=== PATIENT | female | born 1970 | race American Indian/Alaskan Native ===

== ENCOUNTER 2018-03-05 08:52 | Inpatient (IN) | payer MEDICAID, OTHER ==
[~2018-03-05] VITALS: Ht 160 cm; Wt 48.8 kg
[2018-03-05] MEDS ORDERED: thiamine inj. 100 MG, magnesium sulf injection 2 GM, MVI, adult No.4 with vit. K 10 ML ... IV SCH ×4 (09:05)
[2018-03-05] MEDS ORDERED: normal saline 1000ML IV soln IVB ONE (09:05)
[2018-03-05] MEDS ORDERED: LORazepam 2 mg/ml vial IV ONE ×2 (09:05→10:25)
[2018-03-05] MEDS ORDERED: WATER IV SCH (09:49)
[2018-03-05] MEDS ORDERED: MAGNESIUM SULF IV SCH (09:49)
[2018-03-05] MEDS ORDERED: THIAMINE IV SCH (09:49)
[2018-03-05] MEDS ORDERED: DEXTROSE 5% IV SCH (09:49)
[2018-03-05 09:53] LABS: CLARITY,URINE SLIGHTLY CLOUDY (Clear); COLOR,URINE STRAW (Yellow); GLUCOSE, URINE NEGATIVE (Neg); KETONES,URINE NEGATIVE (Neg); LEUKOCYTE ESTERASE ,URINE TRACE (Neg); NITRITES, URINE NEGATIVE (Neg); OCCULT BLOOD,URINE NEGATIVE (Neg); PH,URINE 6.5 (4.8-8.0); PROTEIN,URINE NEGATIVE (Neg); UROBILINOGEN,URINE 0.2 E.U/dL (0.2-1.0)
[2018-03-05 09:59] LABS: BASOPHILS % (AUTO) 0.4 % (0-1); EOSINOPHILS # (AUTO) 0.1 X10'3 (0-0.9); EOSINOPHILS % (AUTO) 1.4 % (0-6); HEMATOCRIT 39.1 % (35.0-45.0); HEMOGLOBIN 13.2 g/dl (12.0-16.0); LYMPHOCYTES # (AUTO) 0.7 X10'3 (1.1-4.8); LYMPHOCYTES % (AUTO) 9.6 % (21-51); MEAN CORPUSCULAR HEMOGLOBIN 34.1 PG (27.0-31.0); MEAN CORPUSCULAR HGB CONC 33.8 % (33.0-36.5); MEAN CORPUSCULAR VOLUME 100.7 FL (78-98); MONOCYTES # (AUTO) 0.7 X10'3 (0-0.9); MONOCYTES % (AUTO) 8.8 % (2-12); NEUTROPHILS # (AUTO) 6.3 X10'3 (1.8-7.7); NEUTROPHILS % (AUTO) 79.8 % (42-75); PLATELET COUNT 144 X10'3 (140-440); RED BLOOD COUNT 3.88 X10'6 (4.20-5.60); RED CELL DISTRIBUTION WIDTH 12.3 % (11.5-14.5); WHITE BLOOD COUNT 7.8 X10'3 (4.5-11.0)
[2018-03-05 10:05] LABS: URINE AMPHETAMINE SCREEN NEGATIVE (Neg); URINE BARBITUATE SCREEN NEGATIVE (Neg); URINE BENZODIAZEPINES SCREEN NEGATIVE (Neg); URINE CANNABINOID SCREEN NEGATIVE (Neg); URINE COCAINE SCREEN NEGATIVE (Neg); URINE METHADONE SCREEN NEGATIVE (Neg); URINE OPIATE SCREEN NEGATIVE (Neg); URINE PHENCYCLIDINE SCREEN NEGATIVE (Neg)
[2018-03-05 10:08] LABS: ALANINE AMINOTRANSFERASE 79 U/L (12-78); ALBUMIN 3.8 G/DL (3.4-5.0); ALKALINE PHOSPHATASE 134 IU/L (46-116); ANION GAP 15 (8-16); ASPARTATE AMINO TRANSFERASE 208 U/L (10-37); BILIRUBIN,TOTAL 1.1 MG/DL (0.1-1.0); BLOOD UREA NITROGEN 4 MG/DL (7-18); BUN/CREATININE RATIO 8.7 (6.6-38.0); CHLORIDE 94 MMOL/L (99-107); CREATININE 0.46 MG/DL (0.40-0.90); GLUCOSE 85 MG/DL (70-104); POTASSIUM 3.8 MMOL/L (3.5-5.1); SODIUM 133 MMOL/L (135-145); TOTAL CARBON DIOXIDE 24.1 MMOL/L (24-32); TOTAL PROTEIN 7.8 G/DL (6.4-8.2); eGFR > 90 ML/MIN
[2018-03-05] MEDS: multivitamins, therapeutics tablet PO SCH (10:11)
[2018-03-05 10:17] LABS: UA COLLECTION TYPE CLN CATCH MIDSTREAM
[2018-03-05 10:21] LABS: BACTERIA,URINE FEW /HPF (Neg); RBC,URINE 0-2 /HPF (0-2); SQUAMOUS EPITHELIAL CELL,UR MODERATE /LPF (FEW); WBC,URINE 0-4 /HPF (0-4)
[2018-03-05] MEDS ORDERED: ondansetron/PF 4mg/2ml inj IV ONE (10:25)
--- NOTE | 2018-03-05 10:30 | NUR ---
pt driking 32 oz ice tea. NAD less tremors after ativan
--- NOTE | 2018-03-05 11:56 | NUR ---
HOSPITALIST AT BEDSIDE FOR ADMIT
[2018-03-05] MEDS ORDERED: potassium Cl 20 mEq SR tablet PO PRN (12:25)
[2018-03-05] MEDS ORDERED: mag hydrox/Alum hydrox/simeth 30ml oral suspension PO PRN (12:25)
[2018-03-05] MEDS ORDERED: potassium Cl 40MEQ/NS 500ml 500 ML IV PRN (12:25)
[2018-03-05] MEDS ORDERED: magnesium Cl slow-release 64mg tablet PO PRN (12:25)
[2018-03-05] MEDS ORDERED: magnesium 4gm in 100ml NS 100 ML IV PRN (12:25)
[2018-03-05] MEDS ORDERED: magnesium hydroxide 30ml (MOM) UD suspension PO PRN (12:25)
[2018-03-05] MEDS ORDERED: acetaminophen 325mg tablet PO PRN ×2 (12:25)
[2018-03-05] MEDS ORDERED: haloperidol lactate 5mg/ml inj IM PRN (13:00)
[2018-03-05] MEDS ORDERED: haloperidol 5mg tablet PO PRN (13:00)
--- NOTE | 2018-03-05 13:17 | NUR ---
ASSUMED CARE OF PT FROM SYLVIA RN, PT IS RESTING QUIETLY WAITING FOR ROOM ASSIGNMENT
[2018-03-05] MEDS ORDERED: NO HOME MEDS (13:29)
--- NOTE | 2018-03-05 13:43 | NUR ---
ATTEMPTED REPORT, NURSE IS BUSY AND WILL CALL BACK, PT IS RESTING QUIETLY WITH FAMILY AT BEDSIDE, SHE IS DRINKING FLUID, GUY WELL, NO N/V
--- NOTE | 2018-03-05 14:20 | NUR ---
report called to Erica GALARZA
--- NOTE | 2018-03-05 14:21 | NUR ---
Received report from Harmony GALARZA in ER
[2018-03-05 15:15] VITALS: BP 142/101
[2018-03-05] MEDS: LORazepam 2 mg/ml vial IV PRN ×4 (15:53→23:07)
[2018-03-05] MEDS: nicotine 21mg patch - 24 hr TD SCH (16:54)
[2018-03-05] MEDS: ondansetron/PF 4mg/2ml inj IV PRN (17:42)
--- NOTE | 2018-03-05 18:10 | NUR ---
Problems reprioritized. Patient report given, Cesilia RN questions answered & plan of care reviewed with .
--- NOTE | 2018-03-05 18:30 | NUR ---
Patient in room [facility] 345. I have received report from Nicole GALARZA and had the opportunity to ask questions and assume patient care.
[2018-03-05 19:30] VITALS: BP 129/81
[2018-03-05 20:00] VITALS: BP 129/81
[2018-03-05] MEDS: dextrose 5%-normal saline 1,000 ML IV SCH (20:22)
[2018-03-05 23:00] VITALS: BP 151/108
--- NOTE | 2018-03-06 03:03 | NUR ---
Patient states that she does not take any medications at home , not even for pain or vitamin supplements Addendum: 03/06/18 at 0342 by Cesilia Hensley RN Amended: Links added.
[2018-03-06 05:18] LABS: BASOPHILS % (AUTO) 0.7 % (0-1); EOSINOPHILS # (AUTO) 0.1 X10'3 (0-0.9); EOSINOPHILS % (AUTO) 2.9 % (0-6); HEMATOCRIT 33.5 % (35.0-45.0); HEMOGLOBIN 11.8 g/dl (12.0-16.0); LYMPHOCYTES # (AUTO) 0.9 X10'3 (1.1-4.8); LYMPHOCYTES % (AUTO) 19.7 % (21-51); MEAN CORPUSCULAR HEMOGLOBIN 35.3 PG (27.0-31.0); MEAN CORPUSCULAR HGB CONC 35.3 % (33.0-36.5); MEAN CORPUSCULAR VOLUME 99.7 FL (78-98); MEAN PLATELET VOLUME 8.5 FL (7.4-10.4); MONOCYTES # (AUTO) 0.4 X10'3 (0-0.9); MONOCYTES % (AUTO) 9.1 % (2-12); NEUTROPHILS # (AUTO) 3.1 X10'3 (1.8-7.7); NEUTROPHILS % (AUTO) 67.6 % (42-75); PLATELET COUNT 111 X10'3 (140-440); RED BLOOD COUNT 3.36 X10'6 (4.20-5.60); RED CELL DISTRIBUTION WIDTH 12.2 % (11.5-14.5); WHITE BLOOD COUNT 4.5 X10'3 (4.5-11.0)
[2018-03-06 05:22] LABS: PROTHROMBIN TIME 10.1 SECONDS (9.0-12.0)
[2018-03-06 06:04] LABS: ALANINE AMINOTRANSFERASE 55 U/L (12-78); ALBUMIN 3.2 G/DL (3.4-5.0); ALBUMIN/GLOBULIN RATIO 0.9 (1.1-1.5); ALKALINE PHOSPHATASE 103 IU/L (46-116); AMYLASE 31 U/L (25-115); ANION GAP 12 (8-16); ASPARTATE AMINO TRANSFERASE 108 U/L (10-37); BILIRUBIN,TOTAL 1.7 MG/DL (0.1-1.0); BLOOD UREA NITROGEN 2 MG/DL (7-18); BUN/CREATININE RATIO 4.3 (6.6-38.0); CALCIUM 8.2 MG/DL (8.5-10.1); CHLORIDE 99 MMOL/L (99-107); CREATININE 0.47 MG/DL (0.40-0.90); GLUCOSE 91 MG/DL (70-104); LIPASE 71 U/L (73-393); PHOSPHORUS 3.1 MG/DL (2.3-4.5); POTASSIUM 3.2 MMOL/L (3.5-5.1); SODIUM 135 MMOL/L (135-145); TOTAL CARBON DIOXIDE 24.4 MMOL/L (24-32); TOTAL PROTEIN 6.8 G/DL (6.4-8.2); eGFR > 90 ML/MIN
--- NOTE | 2018-03-06 06:05 | NUR ---
Patient in room [facility] 345. I have received report from Cesilia GALARZA and had the opportunity to ask questions and assume patient care.
--- NOTE | 2018-03-06 06:15 | NUR ---
Problems reprioritized. Patient report given, questions answered & plan of care reviewed with Nicole GALARZA.
[2018-03-06 07:47] VITALS: BP 128/89
[2018-03-06] MEDS: K and/or MAG REPLACEMENT MC SCH (08:00)
[2018-03-06] MEDS: LORazepam 2 mg/ml vial IV PRN ×5 (08:55→22:46)
[2018-03-06] MEDS: thiamine 100mg tablet PO SCH (08:55)
[2018-03-06] MEDS: multivitamins, therapeutics tablet PO SCH (08:55)
[2018-03-06] MEDS: folic acid 1mg tablet PO SCH (08:55)
[2018-03-06] MEDS: nicotine 21mg patch - 24 hr TD SCH (08:56)
[2018-03-06] MEDS: enoxaparin 40mg/0.4ml syringe SQ SCH (08:56)
[2018-03-06] MEDS: dextrose 5%-normal saline 1,000 ML IV SCH ×2 (08:57→20:54)
[2018-03-06] MEDS: potassium Cl 20 mEq SR tablet PO PRN ×3 (09:07→20:53)
[2018-03-06] MEDS ORDERED: tuberculin, purif. prot. deriv. 5 units/0.1ml ID ONE (11:15)
[2018-03-06 11:30] VITALS: BP 146/101
[2018-03-06 12:00] VITALS: BP 146/101
[2018-03-06] MEDS: ondansetron/PF 4mg/2ml inj IV PRN (12:44)
[2018-03-06] MEDS ORDERED: citalopram 20mg tablet PO SCH (16:25)
--- NOTE | 2018-03-06 16:35 | NUR ---
Administered PPD 1434. Read 03/08 at 1434
--- NOTE | 2018-03-06 17:32 | NUR ---
Malnutrition consult. H/o EtOH 18 beers per day per H&P and here for detox for 72 hours before she can go into rehab facility. She is receiving MVI, folic acid and thiamine. Patient is fatigued and with some tremors. Appetite is low d/t this. PO intake for one day 25-49%. Patient's appetite likely to improve as detox continues. Usual diet at home documented as "drank beers" and reports weight loss of between 14-23 lbs. Patient seen at bedside and reports UBW to be between 122 and 124 lbs however she does not know how long ago she weighed that. There is no weight history. She currently weighs 111 lbs. Patient reports she does not usually eat three meals/day and will barely eat one meal. The menu ordering process was reviewed and patient reports satisfaction with the variety that is offered and has no questions or concerns at this time, provided no food preferences. Patient has no visible fat or muscle loss. Will continue to follow. Addendum: 03/06/18 at [address] Amended: Links added.
[2018-03-06 18:00] VITALS: BP 136/86
--- NOTE | 2018-03-06 18:15 | NUR ---
Problems reprioritized. Patient report given, Cecilia GALARZA questions answered & plan of care reviewed with .
--- NOTE | 2018-03-06 18:20 | NUR ---
Received report from primary care nurse Nicole GALARZA. Assumed patient care. Patient is awake and alert on room air visiting with her daughter and her mother. Call light and items of frequent use within reach. Will continue to monitor for changes.
[2018-03-07] VITALS: BP 132/87
[2018-03-07] MEDS: LORazepam 2 mg/ml vial IV PRN ×6 (05:07→21:59)
[2018-03-07 05:23] LABS: BASOPHILS % (AUTO) 0.5 % (0-1); EOSINOPHILS # (AUTO) 0.2 X10'3 (0-0.9); EOSINOPHILS % (AUTO) 5.9 % (0-6); HEMATOCRIT 32.5 % (35.0-45.0); HEMOGLOBIN 10.9 g/dl (12.0-16.0); LYMPHOCYTES # (AUTO) 0.9 X10'3 (1.1-4.8); LYMPHOCYTES % (AUTO) 24.4 % (21-51); MEAN CORPUSCULAR HEMOGLOBIN 34.3 PG (27.0-31.0); MEAN CORPUSCULAR HGB CONC 33.5 % (33.0-36.5); MEAN CORPUSCULAR VOLUME 102.2 FL (78-98); MEAN PLATELET VOLUME 8.9 FL (7.4-10.4); MONOCYTES # (AUTO) 0.4 X10'3 (0-0.9); MONOCYTES % (AUTO) 12.4 % (2-12); NEUTROPHILS % (AUTO) 56.8 % (42-75); PLATELET COUNT 102 X10'3 (140-440); RED BLOOD COUNT 3.18 X10'6 (4.20-5.60); WHITE BLOOD COUNT 3.5 X10'3 (4.5-11.0)
[2018-03-07 05:24] LABS: INR 1.1 INR; PROTHROMBIN TIME 10.9 SECONDS (9.0-12.0)
--- NOTE | 2018-03-07 06:13 | NUR ---
Checked patients BG was 101 called lab for redraw.
[2018-03-07 07:00] VITALS: BP 142/97
[2018-03-07] MEDS: nicotine 21mg patch - 24 hr TD SCH (07:59)
[2018-03-07] MEDS: citalopram 20mg tablet PO SCH (08:00)
[2018-03-07] MEDS: thiamine 100mg tablet PO SCH (08:00)
[2018-03-07] MEDS: K and/or MAG REPLACEMENT MC SCH (08:00)
[2018-03-07] MEDS: multivitamins, therapeutics tablet PO SCH (08:01)
[2018-03-07] MEDS: folic acid 1mg tablet PO SCH (08:01)
[2018-03-07] MEDS: enoxaparin 40mg/0.4ml syringe SQ SCH (08:02)
[2018-03-07 08:43] LABS: ALANINE AMINOTRANSFERASE 52 U/L (12-78); ALBUMIN 3.4 G/DL (3.4-5.0); ALBUMIN/GLOBULIN RATIO 0.9 (1.1-1.5); ALKALINE PHOSPHATASE 110 IU/L (46-116); AMYLASE 25 U/L (25-115); ANION GAP 12 (8-16); ASPARTATE AMINO TRANSFERASE 90 U/L (10-37); BILIRUBIN,TOTAL 1.4 MG/DL (0.1-1.0); BLOOD UREA NITROGEN 1 MG/DL (7-18); BUN/CREATININE RATIO 1.9 (6.6-38.0); CALCIUM 8.8 MG/DL (8.5-10.1); CHLORIDE 98 MMOL/L (99-107); CREATININE 0.52 MG/DL (0.40-0.90); GLUCOSE 97 MG/DL (70-104); LIPASE 72 U/L (73-393); MAGNESIUM 1.6 MG/DL (1.5-2.4); PHOSPHORUS 3.1 MG/DL (2.3-4.5); POTASSIUM 3.6 MMOL/L (3.5-5.1); SODIUM 133 MMOL/L (135-145); TOTAL CARBON DIOXIDE 22.6 MMOL/L (24-32); TOTAL PROTEIN 7.3 G/DL (6.4-8.2); eGFR > 90 ML/MIN
[2018-03-07 12:00] VITALS: BP 147/103
[2018-03-07] MEDS: dextrose 5%-normal saline 1,000 ML IV SCH (12:23)
[2018-03-07 18:00] VITALS: BP 147/99
--- NOTE | 2018-03-07 18:22 | NUR ---
Problems reprioritized. Patient report given, questions answered & plan of care reviewed with Cecilia GALARZA.
--- NOTE | 2018-03-07 18:28 | NUR ---
Received report from primary care nurse Tiffany GALARZA. Assumed patient care. Patient is awake and alert on room air in no apparent distress visiting with her daughters. Call light and items of frequent use within reach will continue to monitor for changes.
--- NOTE | 2018-03-07 18:28 | NUR ---
Problems reprioritized. Patient report given, questions answered & plan of care reviewed with Mikie GALARZA. Addendum: 03/07/18 at 1829 by Tiffany Brown RN Dorcas Brooks RN
[2018-03-08] VITALS: BP 141/103
[2018-03-08] MEDS: dextrose 5%-normal saline 1,000 ML IV SCH ×2 (01:49→14:48)
[2018-03-08 05:20] LABS: PROTHROMBIN TIME 10.3 SECONDS (9.0-12.0)
[2018-03-08 05:26] LABS: ANION GAP 10 (8-16); BILIRUBIN,TOTAL 1.5 MG/DL (0.1-1.0); BLOOD UREA NITROGEN 1 MG/DL (7-18); BUN/CREATININE RATIO 2.4 (6.6-38.0); CALCIUM 8.5 MG/DL (8.5-10.1); CHLORIDE 95 MMOL/L (99-107); CREATININE 0.41 MG/DL (0.40-0.90); GLUCOSE 96 MG/DL (70-104); MAGNESIUM 1.3 MG/DL (1.5-2.4); PHOSPHORUS 3.7 MG/DL (2.3-4.5); SODIUM 129 MMOL/L (135-145); TOTAL CARBON DIOXIDE 23.7 MMOL/L (24-32); TOTAL PROTEIN 6.8 G/DL (6.4-8.2); eGFR > 90 ML/MIN
[2018-03-08 05:27] LABS: ALANINE AMINOTRANSFERASE 47 U/L (12-78); ALBUMIN 3.2 G/DL (3.4-5.0); ALBUMIN/GLOBULIN RATIO 0.9 (1.1-1.5); ALKALINE PHOSPHATASE 101 IU/L (46-116); AMYLASE 22 U/L (25-115); ASPARTATE AMINO TRANSFERASE 78 U/L (10-37); LIPASE 67 U/L (73-393)
[2018-03-08 05:35] LABS: POTASSIUM 2.9 MMOL/L (3.5-5.1)
[2018-03-08 05:36] LABS: BASOPHILS % (AUTO) 0.2 % (0-1); EOSINOPHILS # (AUTO) 0.3 X10'3 (0-0.9); EOSINOPHILS % (AUTO) 5.8 % (0-6); HEMATOCRIT 33.6 % (35.0-45.0); HEMOGLOBIN 11.5 g/dl (12.0-16.0); LYMPHOCYTES # (AUTO) 0.8 X10'3 (1.1-4.8); LYMPHOCYTES % (AUTO) 17.4 % (21-51); MEAN CORPUSCULAR HEMOGLOBIN 33.9 PG (27.0-31.0); MEAN CORPUSCULAR HGB CONC 34.1 % (33.0-36.5); MEAN CORPUSCULAR VOLUME 99.4 FL (78-98); MEAN PLATELET VOLUME 8.8 FL (7.4-10.4); MONOCYTES # (AUTO) 0.6 X10'3 (0-0.9); MONOCYTES % (AUTO) 11.4 % (2-12); NEUTROPHILS # (AUTO) 3.1 X10'3 (1.8-7.7); NEUTROPHILS % (AUTO) 65.2 % (42-75); PLATELET COUNT 120 X10'3 (140-440); RED BLOOD COUNT 3.38 X10'6 (4.20-5.60); RED CELL DISTRIBUTION WIDTH 13.1 % (11.5-14.5); WHITE BLOOD COUNT 4.8 X10'3 (4.5-11.0)
--- NOTE | 2018-03-08 05:40 | NUR ---
Paged MD Yee regarding critical potassium. Protocol in place. No new orders.
[2018-03-08] MEDS: potassium Cl 40MEQ/NS 500ml 500 ML IV PRN ×2 (05:52→13:52)
--- NOTE | 2018-03-08 06:30 | NUR ---
Patient is resting with relaxed and unlabored respirations on room air. In no apparent distress. Call light and items of frequent use within reach.
--- NOTE | 2018-03-08 06:30 | NUR ---
Report given to Huyen GALARZA.
[2018-03-08 07:30] VITALS: BP 136/85
[2018-03-08] MEDS: K and/or MAG REPLACEMENT MC SCH (08:00)
[2018-03-08] MEDS: nicotine 21mg patch - 24 hr TD SCH (08:19)
[2018-03-08] MEDS: folic acid 1mg tablet PO SCH (08:20)
[2018-03-08] MEDS: thiamine 100mg tablet PO SCH (08:20)
[2018-03-08] MEDS: citalopram 20mg tablet PO SCH (08:20)
[2018-03-08] MEDS: multivitamins, therapeutics tablet PO SCH (08:20)
[2018-03-08] MEDS: enoxaparin 40mg/0.4ml syringe SQ SCH (08:21)
[2018-03-08] MEDS: LORazepam 1 MG tablet PO PRN (09:26)
[2018-03-08 11:20] VITALS: BP 146/103
[2018-03-08] MEDS ORDERED: potassium Cl 20 mEq SR tablet PO PRN (13:15)
[2018-03-08] MEDS ORDERED: potassium Cl 40MEQ/NS 500ml 500 ML IV PRN ×2 (13:15)
[2018-03-08] MEDS ORDERED: magnesium 2GM in 50ml NS 50 ML IV PRN (13:15)
[2018-03-08] MEDS ORDERED: magnesium 2 GM in 50ml IV PRN (13:25)
[2018-03-08 18:00] VITALS: BP 146/101
--- NOTE | 2018-03-08 18:19 | NUR ---
Problems reprioritized. Patient report given, questions answered & plan of care reviewed with GEOVANNI Brooks.
--- NOTE | 2018-03-08 19:18 | NUR ---
alternative meal or food offered. Patient said, "Im just not hungry." Addendum: 03/08/18 at 1919 by Cecilia Siddiqui RN Amended: Links added.
[2018-03-09] VITALS: BP 147/97
[2018-03-09] MEDS: LORazepam 1 MG tablet PO PRN (02:40)
[2018-03-09] MEDS: dextrose 5%-normal saline 1,000 ML IV SCH (04:04)
[2018-03-09 05:19] LABS: PROTHROMBIN TIME 10.5 SECONDS (9.0-12.0)
[2018-03-09 05:24] LABS: ALANINE AMINOTRANSFERASE 44 U/L (12-78); ALBUMIN 3.1 G/DL (3.4-5.0); ALBUMIN/GLOBULIN RATIO 0.9 (1.1-1.5); ALKALINE PHOSPHATASE 93 IU/L (46-116); AMYLASE 24 U/L (25-115); ANION GAP 11 (8-16); ASPARTATE AMINO TRANSFERASE 64 U/L (10-37); BILIRUBIN,TOTAL 1.1 MG/DL (0.1-1.0); BLOOD UREA NITROGEN 1 MG/DL (7-18); BUN/CREATININE RATIO 2.6 (6.6-38.0); CALCIUM 8.5 MG/DL (8.5-10.1); CHLORIDE 94 MMOL/L (99-107); CREATININE 0.39 MG/DL (0.40-0.90); GLUCOSE 94 MG/DL (70-104); LIPASE 79 U/L (73-393); MAGNESIUM 1.3 MG/DL (1.5-2.4); PHOSPHORUS 2.9 MG/DL (2.3-4.5); SODIUM 127 MMOL/L (135-145); TOTAL PROTEIN 6.5 G/DL (6.4-8.2); eGFR > 90 ML/MIN
[2018-03-09] MEDS: potassium Cl 20 mEq SR tablet PO PRN ×2 (05:32→09:49)
[2018-03-09 05:36] LABS: BASOPHILS % (AUTO) 0.4 % (0-1); EOSINOPHILS # (AUTO) 0.3 X10'3 (0-0.9); EOSINOPHILS % (AUTO) 5.8 % (0-6); HEMATOCRIT 31.6 % (35.0-45.0); HEMOGLOBIN 10.7 g/dl (12.0-16.0); LYMPHOCYTES % (AUTO) 21.1 % (21-51); MEAN CORPUSCULAR HEMOGLOBIN 33.7 PG (27.0-31.0); MEAN CORPUSCULAR HGB CONC 33.9 % (33.0-36.5); MEAN CORPUSCULAR VOLUME 99.4 FL (78-98); MEAN PLATELET VOLUME 8.6 FL (7.4-10.4); MONOCYTES # (AUTO) 0.6 X10'3 (0-0.9); MONOCYTES % (AUTO) 13.8 % (2-12); NEUTROPHILS # (AUTO) 2.7 X10'3 (1.8-7.7); NEUTROPHILS % (AUTO) 58.9 % (42-75); PLATELET COUNT 123 X10'3 (140-440); RED BLOOD COUNT 3.18 X10'6 (4.20-5.60); RED CELL DISTRIBUTION WIDTH 12.4 % (11.5-14.5); WHITE BLOOD COUNT 4.6 X10'3 (4.5-11.0)
--- NOTE | 2018-03-09 06:27 | NUR ---
Reported off to Aravind GALARZA. Patient is resting with relaxed and unlabored respirations on room air. In no apparent distress. Call light and items of frequent use within reach.
--- NOTE | 2018-03-09 06:30 | NUR ---
Patient in room [facility] 345. I have received report from Cecilia GALARZA and had the opportunity to ask questions and assume patient care.
[2018-03-09 07:00] VITALS: BP 149/96
[2018-03-09] MEDS: K and/or MAG REPLACEMENT MC SCH (08:00)
[2018-03-09] MEDS: folic acid 1mg tablet PO SCH (08:09)
[2018-03-09] MEDS: multivitamins, therapeutics tablet PO SCH (08:09)
[2018-03-09] MEDS: thiamine 100mg tablet PO SCH (08:09)
[2018-03-09] MEDS: citalopram 20mg tablet PO SCH (08:09)
[2018-03-09] MEDS: enoxaparin 40mg/0.4ml syringe SQ SCH (08:10)
[2018-03-09] MEDS: nicotine 21mg patch - 24 hr TD SCH (08:11)
[2018-03-09 11:00] VITALS: BP 149/101
[2018-03-09] MEDS ORDERED: LORazepam 1 MG tablet PO PRN (13:00)
[2018-03-09] MEDS ORDERED: LORazepam 2 mg/ml vial IV PRN (13:00)
[2018-03-09] MEDS: ondansetron/PF 4mg/2ml inj IV PRN (14:13)
[2018-03-09] MEDS ORDERED: FOLI1TAB16 PO (14:39)
[2018-03-09] MEDS ORDERED: MULT-1179 PO (14:39)
[2018-03-09] MEDS ORDERED: ATI1T PO (14:39)
[2018-03-09] MEDS ORDERED: CITA-124 PO (14:39)
[2018-03-09] MEDS ORDERED: NICO-687 TD (14:39)
[2018-03-09] MEDS ORDERED: thiamine tablet PO (14:39)
--- NOTE | 2018-03-09 15:30 | NUR ---
Discharged patient home. Discharged instructions given to patient and the daughter present at bedside. Both patient and daughter verbalized understanding of all instructions made. Written prescriptions given to patient. Peripheral IV catheter removed, tip intact. Belongings sent with the patient. Addendum: 03/09/18 at 1547 by Aravind Fan RN Reminded patient to follow up with the [facility] - patient verbalized understanding
--- NOTE | 2018-03-11 12:46 | NUR ---
T/C with [facility] to facilitate pt's access to AOD & MH services. Audit & PHQ-9 assessments faxed to [facility]. SS referral closed as pt is d/c'd.
== END 2018-03-09 15:30 | disposition home or self-care (01) | DRG 52 ==
LOC: ER 08:52 → ED HOLD 12:25 → EDBEDREQ 13:26 → SUR 3N 15:05
PROVIDERS: ADMIT Hospitalist; ATTEND Hospitalist
DX: G92 Toxic encephalopathy (principal); E44.0 Moderate protein-calorie malnutrition; K70.10 Alcoholic hepatitis without ascites; F10.229 Alcohol dependence with intoxication, unspecified; F10.232 Alcohol dependence with withdrawal with perceptual disturbance; F32.9 Major depressive disorder, single episode, unspecified; E87.6 Hypokalemia; F17.210 Nicotine dependence, cigarettes, uncomplicated; F41.9 Anxiety disorder, unspecified; Z68.1 Body mass index [BMI] 19.9 or less, adult; Z79.899 Other long term (current) drug therapy
CPT/HCPCS: 36415; 76700; 80053; 80305; 80320; 81001; 82140; 82150; 82948; 83690; 83735; 84100; 84132; 85025; 85610; 87070; 87088; 93005; 96365; 96375; 96376; 97116; 97162; 99285; G0378; J1650; J2060; J2405; J3411; J3475; J3480; J7042; J7060